=== PATIENT | female | born 1975 | race Caucasian/White ===

== ENCOUNTER 2016-09-14 09:37 | Emergency (ER) | payer SELFPAY ==
[~2016-09-14] VITALS: Ht 167.6 cm; Wt 67.6 kg
[~2016-09-14 09:37] MED LIST: CIPRO500 MG PO; FLOMAX0.4 MG PO; MOTRIN600 MG PO; TYLENOL EXTRA500 MG PO
[2016-09-14] MEDS ORDERED: FLEXERIL10 MG PO (11:21)
[2016-09-14] MEDS ORDERED: LIDODERM 5% P1 PATCH TD (11:21)
[2016-09-14] MEDS ORDERED: NAPROXEN500 MG PO (11:21)
[2016-09-14] MEDS ORDERED: PREDNISONE20 MG PO (11:21)
[2016-09-14 11:40] VITALS: BP 124/73
[2016-09-15] MEDS ORDERED: LIDODERM 5% P1 PATCH TD (11:03)
[2016-09-15] MEDS ORDERED: NAPROXEN500 MG PO (11:04)
[2016-09-15] MEDS ORDERED: PREDNISONE20 MG PO (11:05)
== END 2016-09-14 11:41 | disposition home or self-care (01) ==
LOC: EME 09:37
DX: M54.16 Radiculopathy, lumbar region (principal)
CPT/HCPCS: 99281; 99284; J1885; J7512

== ENCOUNTER 2016-09-15 06:54 | Inpatient (IN) | payer SELFPAY ==
[~2016-09-15] VITALS: Ht 167.6 cm; Wt 67.7 kg
[~2016-09-15 06:54] MED LIST changes: +FLEXERIL10 MG PO; +LIDODERM 5% P1 PATCH TD; +NAPROXEN500 MG PO; +PREDNISONE20 MG PO
[2016-09-15 09:04] LABS: ADD MIUA? YES; BILIRUBIN NEGATIVE; BLOOD NEGATIVE; COLOR YELLOW ((YELLOW)); GLUCOSE (STRIP) NEGATIVE; KETONES NEGATIVE; LEUKOCYTES TRACE; NITRITE NEGATIVE; PH, URINE 6.5 (5-8); PROTEIN (STRIP) NEGATIVE; SPECIFIC GRAVITY 1.003 (1.000-1.030); UROBILINOGEN 0.2 MG/DL (0.2-1.0)
[2016-09-15 09:21] LABS: BACTERIA NONE SEEN; CASTS NONE SEEN /LPF; CRYSTALS NONE SEEN; EPITHELIAL CELLS 1+; MUCUS NONE SEEN; RED BLOOD CELLS NONE SEEN /HPF (0-5); UCUL ADDED? NO; WHITE BLOOD CELLS 0-5 /HPF (0-5)
[2016-09-15] MEDS ORDERED: LIDODERM 5% P1 PATCH TD (11:03)
[2016-09-15] MEDS ORDERED: NAPROXEN500 MG PO (11:04)
[2016-09-15] MEDS ORDERED: PREDNISONE20 MG PO (11:05)
[2016-09-15 11:13] LABS: BASOPHIL COUNT 0.1 K/uL (0-0.1); EOSINOPHIL (%) 1.1 % (0-5); EOSINOPHIL COUNT 0.2 K/uL (0-0.3); HEMATOCRIT 40.3 % (36.0-46.0); IMMATURE GRANULOCYTE (%) 0.3 % (0.0-0.7); IMMATURE GRANULOCYTE COUNT 0.5 K/uL; LYMPHOCYTE COUNT 2.8 K/uL (1.0-2.8); MCH 29.1 PG (29.0-34.0); MCHC 34.2 G/DL (30.0-36.0); MEAN PLAT.VOLUME 9.3 uM^3 (9.5-12.4); MONOCYTE (%) 7.4 % (3-12); MONOCYTE COUNT 1.1 K/uL (0-0.8); NEUTROPHIL (%) 71.8 % (45-76); NEUTROPHIL COUNT 10.6 K/uL (1.8-6.4); PLATELET COUNT 351 K/uL (156-360); RBC DIS.WIDTH-CV 12.7 % (11.8-14.6); RBC DIS.WIDTH-SD 38.4 % (39-53); RED BLOOD COUNT 4.74 M/uL (3.80-5.20); WHITE BLOOD COUNT 14.7 K/uL (4.1-10.2)
[2016-09-15 11:27] LABS: CHLORIDE 112 mEq/L (99-109); POTASSIUM 4.1 mEq/L (3.7-5.4); SODIUM 142 mEq/L (136-147)
[2016-09-15 11:28] LABS: GLUCOSE 82 mg/dL (70-99)
[2016-09-15 11:30] LABS: ANION GAP 12 MEQ/L (2-14)
[2016-09-15 11:32] LABS: GFR ESTIMATE (CALCULATED) > 59 mL/min/
[2016-09-15 11:33] LABS: UREA NITROGEN (BUN) 7 mg/dL (9-23)
[2016-09-15 14:51] VITALS: BP 135/78
[2016-09-15 20:10] VITALS: BP 120/72
[2016-09-15 22:50] VITALS: BP 122/71
[2016-09-16 03:20] VITALS: BP 122/65
[2016-09-16 07:51] VITALS: BP 115/70
[2016-09-16 11:29] VITALS: BP 120/78
[2016-09-16 15:55] VITALS: BP 120/69
[2016-09-16 19:47] VITALS: BP 118/69
[2016-09-16 23:11] VITALS: BP 125/65
[2016-09-17 03:24] VITALS: BP 122/64
[2016-09-17 07:15] VITALS: BP 122/72
[2016-09-17] MEDS ORDERED: ENDOCET 5-3251 EACH PO (09:25)
[2016-09-17 11:37] VITALS: BP 126/66
== END 2016-09-17 13:09 | disposition home or self-care (01) | DRG 520 ==
LOC: EME 06:54 → EDOF 10:53 → 3EAST 10:53 → EDOF 10:56 → 3EAST 12:14
PROVIDERS: Emergency Medicine
PROC: 0SB40ZZ Excision of Lumbosacral Disc, Open Approach (ICD-10-PCS; principal; 2016-09-16)
DX: M51.16 Intervertebral disc disorders with radiculopathy, lumbar region (principal); R31.9 Hematuria, unspecified
CPT/HCPCS: 72020; 72148; 76000; 80048; 81003; 85025; 93971; 99281; 99284; J0131; J0690; J1040; J1100; J1170; J1885; J2250; J2270; J2405; J2710; J3010; J3480; J7030